=== PATIENT | female | born 1965 | race Caucasian/White ===

== ENCOUNTER 2021-12-18 13:00 | Inpatient (IN) | payer MEDICARE, OTHER ==
[~2021-12-18] VITALS: Ht 157.5 cm; Wt 84.1 kg
[~2021-12-18 13:00] MED LIST: ATIVAN0.5 M1 PO; CATAPRES 0.2MG0.2 MG PO; CLOPIDOGREL75 MG PO; COLACE100 MG PO; COQ-10100 MG PO; FOLIC ACID1 MG PO; GLUCOPHAGE850 MG PO; HCTZ25 MG PO; IPRAT-ALBUT 0.5-3 ML PO; ISOSORBIDE MON120 MG PO; K-DUR20 MEQ PO; LEVO-T25 MCG PO; LEXAPRO20 MG PO; NEURONTIN300 MG PO; NITROGLYCERIN0.4 MG SL; NORVASC5 MG PO; OMEPRAZOLE40 MG PO; PROGESTERONE100 MG PO; ROBAXIN500 MG PO; SINGULAIR10 MG PO; STIOLTO RESPIMAT PO; TOPROL XL 25MG25 MG PO; VENTOLIN (2.5 MG/3 M PO; VITAMIN D-32000 UNIT PO; VITAMIN D50000 UNIT PO; XANAX0.5 MG PO; ZETIA10 MG PO
[2021-12-18 14:27] LABS: BASOPHIL 0.5 % (0-2); EOSINOPHIL 0.4 % (0-5); HCT 45.9 % (37.0-47.0); HGB 15.8 g/dl (12.5-16.0); LYMPHOCYTE 22.4 % (15-48); MCH 33.5 pg (25.0-31.0); MCHC 34.4 g/dL (32.0-36.0); MCV 97.2 fL (78.0-100.0); MONOCYTE 7.2 % (0-12); MPV 8.7 fL (6.0-9.5); NEUTROPHIL 69.2 % (41-80); NRBC 0; PLT 264 K/uL (150-400); RBC 4.72 M/uL (4.20-5.40); RDW 13.2 % (11.5-14.0); WBC 10.4 K/uL (4.0-10.5)
[2021-12-18 14:56] LABS: ALBUMIN 3.7 g/dL (3.4-5.0); BILIRUBIN - TOTAL 0.3 mg/dL (0.2-1.0); BUN/CREAT RATIO (CALC) 11.5 RATIO; CREATININE 0.61 mg/dL (0.51-0.95); GLOBULIN (CALCULATION) 3.8 g/dL; POTASSIUM 3.1 mmol/L (3.5-5.1); TOTAL PROTEIN 7.5 g/dL (6.4-8.2)
[2021-12-18 15:04] LABS: LACTIC ACID 2.4 mmol/L (0.4-1.9)
[2021-12-18] MEDS ORDERED: CLONIDINE HCL0.2 MG PO (21:59)
[2021-12-18] MEDS ORDERED: NEURONTIN300 MG PO ×2 (22:06→22:07)
[2021-12-18] MEDS ORDERED: GABAPENTIN600 MG PO (22:07)
[2021-12-18] MEDS ORDERED: METFORMIN HCL500 M2 PO (22:09)
[2021-12-18] MEDS ORDERED: TOPROL XL 50 MG50 MG PO (22:10)
[2021-12-18] MEDS ORDERED: FLONASE ALLER15.8 ML (22:14)
[2021-12-18] MEDS ORDERED: FLEXERIL5 MG PO (22:15)
[2021-12-18] MEDS ORDERED: LINZESS145 MCG PO (22:16)
[2021-12-18] MEDS ORDERED: CLARITIN10 MG PO (22:16)
[2021-12-18] MEDS ORDERED: COLESTID 1GM TAB1 GM PO (22:17)
[2021-12-18] MEDS ORDERED: ASPIRIN EC81 MG PO (22:17)
[2021-12-18] MEDS ORDERED: VITAMIN B-121000 MC1 PO (22:18)
[2021-12-19 06:47] LABS: BASOPHIL 0.2 % (0-2); EOSINOPHIL 0.1 % (0-5); HCT 44.2 % (37.0-47.0); HGB 15.1 g/dl (12.5-16.0); LYMPHOCYTE 24.9 % (15-48); MCH 33.2 pg (25.0-31.0); MCHC 34.2 g/dL (32.0-36.0); MCV 97.1 fL (78.0-100.0); MONOCYTE 6.9 % (0-12); MPV 8.8 fL (6.0-9.5); NEUTROPHIL 67.5 % (41-80); NRBC 0; PLT 230 K/uL (150-400); RBC 4.55 M/uL (4.20-5.40)
[2021-12-19 07:06] LABS: BUN/CREAT RATIO (CALC) 12.5 RATIO; CREATININE 0.48 mg/dL (0.51-0.95); POTASSIUM 3.3 mmol/L (3.5-5.1)
[2021-12-20] MEDS ORDERED: SPIRIVA RESPIMAT4 GM INH (08:47)
[2021-12-20] MEDS ORDERED: VENTOLIN HFA IN18 GM INH (08:47)
[2021-12-20] MEDS ORDERED: PREDNISONE 20MG20 MG PO (08:47)
[2021-12-20] MEDS ORDERED: AZITHROMYCIN250 MG PO (08:48)
--- NOTE | 2021-12-20 09:58 | NUR ---
CALL TO [facility] ORDER FOR O2 AND FAXED ORDERS AND WALK TEST WELL, WILL DELIVER O2 HERE AND AT HOME
== END 2021-12-20 12:10 | disposition home or self-care (01) | DRG 189 ==
LOC: FER 13:00 → FMS 16:51
PROVIDERS: Emergency Medicine; Nurse Practitioner; ADMIT Internal Medicine
DX: J96.91 Respiratory failure, unspecified with hypoxia (principal); J44.1 Chronic obstructive pulmonary disease with (acute) exacerbation; R91.8 Other nonspecific abnormal finding of lung field; I10 Essential (primary) hypertension; K21.9 Gastro-esophageal reflux disease without esophagitis; I25.111 Atherosclerotic heart disease of native coronary artery with angina pectoris with documented spasm; E55.9 Vitamin D deficiency, unspecified; Z85.3 Personal history of malignant neoplasm of breast; E11.9 Type 2 diabetes mellitus without complications; Z90.11 Acquired absence of right breast and nipple; I25.2 Old myocardial infarction; Z90.710 Acquired absence of both cervix and uterus; Z90.49 Acquired absence of other specified parts of digestive tract; Z98.890 Other specified postprocedural states; Z88.2 Allergy status to sulfonamides; Z88.5 Allergy status to narcotic agent; Z88.8 Allergy status to other drugs, medicaments and biological substances; Z87.891 Personal history of nicotine dependence; Z79.02 Long term (current) use of antithrombotics/antiplatelets; Z79.899 Other long term (current) drug therapy; Z79.82 Long term (current) use of aspirin; Z90.13 Acquired absence of bilateral breasts and nipples; Z99.81 Dependence on supplemental oxygen; Z79.84 Long term (current) use of oral hypoglycemic drugs
CPT/HCPCS: 36415; 36600; 71046; 71275; 80048; 80053; 82803; 83605; 84484; 85025; 87040; 93005; 94010; 94640; 94667; 94668; 94762; J0456; J0696; J1100; J1650; J7050; J7512; Q9967

== ENCOUNTER 2022-02-10 11:27 | Emergency (ER) | payer MEDICARE, OTHER ==
[~2022-02-10 11:27] MED LIST changes: +ASPIRIN EC81 MG PO; +AZITHROMYCIN250 MG PO; +CLARITIN10 MG PO; +CLONIDINE HCL0.2 MG PO; +COLESTID 1GM TAB1 GM PO; +FLEXERIL5 MG PO; +FLONASE ALLER15.8 ML; +GABAPENTIN600 MG PO; +LINZESS145 MCG PO; +METFORMIN HCL500 M2 PO; +PREDNISONE 20MG20 MG PO; +SPIRIVA RESPIMAT4 GM INH; +TOPROL XL 50 MG50 MG PO; +VENTOLIN HFA IN18 GM INH; +VITAMIN B-121000 MC1 PO
[2022-02-10 16:17] LABS: BASOPHIL 0.4 % (0-2); EOSINOPHIL 0.6 % (0-5); HCT 45.7 % (37.0-47.0); HGB 15.8 g/dl (12.5-16.0); LYMPHOCYTE 31.6 % (15-48); MCH 34.1 pg (25.0-31.0); MCHC 34.6 g/dL (32.0-36.0); MCV 98.7 fL (78.0-100.0); MONOCYTE 5.7 % (0-12); MPV 8.7 fL (6.0-9.5); NEUTROPHIL 61.3 % (41-80); NRBC 0; PLT 331 K/uL (150-400); RBC 4.63 M/uL (4.20-5.40); RDW 14.2 % (11.5-14.0); WBC 10.5 K/uL (4.0-10.5)
[2022-02-10 16:31] LABS: ALBUMIN 3.7 g/dL (3.4-5.0); BILIRUBIN - TOTAL 0.3 mg/dL (0.2-1.0); BUN/CREAT RATIO (CALC) 14.6 RATIO; CREATININE 0.48 mg/dL (0.51-0.95); GLOBULIN (CALCULATION) 3.3 g/dL; POTASSIUM 3.3 mmol/L (3.5-5.1)
[2022-02-10 16:51] LABS: BILIRUBIN NEGATIVE (NEGATIVE); BLOOD TRACE-INTACT Ery/uL (NEGATIVE); CLARITY CLEAR (CLEAR); COLOR YELLOW (YELLOW); GLUCOSE (U) NORMAL (NORMAL); LEUKOCYTES NEGATIVE Leu/uL (NEGATIVE); NITRITE NEGATIVE (NEGATIVE); PROTEIN NEGATIVE (NEGATIVE); UROBILINOGEN 0.2 mg/dL (0.2-1.0)
[2022-02-10 16:52] LABS: BACTERIA TRACE; URINARY RBC RARE
[2022-02-10] MEDS ORDERED: CYCLOBENZAPRINE10 MG PO (17:25)
== END 2022-02-10 17:42 | disposition home or self-care (01) ==
LOC: FER 11:27
PROVIDERS: Physician Assistant
DX: M54.50 Low back pain, unspecified (principal); G89.29 Other chronic pain; I10 Essential (primary) hypertension; F17.210 Nicotine dependence, cigarettes, uncomplicated; Z88.2 Allergy status to sulfonamides; Z88.8 Allergy status to other drugs, medicaments and biological substances; Z88.5 Allergy status to narcotic agent
CPT/HCPCS: 36415; 72110; 80053; 81001; 85025; J1885; J2405